=== PATIENT | female | born 1950 | race Caucasian/White ===

== ENCOUNTER → 2017-01-30 | Outpatient (CLI) | payer MEDICARE, OTHER ==
[~2017-01-30] MED LIST: ATENOLOL25 MG PO; BENICAR 20MG TA20 MG PO; GLUCOSAMINE & C1 CA1; NAPROSYN375 MG PO; NAPROXEN 3375 MG/TAB PO; NEXIUM20 MG PO; PERCOCET 325 MG1 TA2 PO; TENORMIN 5050 MG/TAB PO; VESICARE PO; WELLBUTRIN XL300 M1 PO; XANAX .25M0.25 MG/TA PO; ZOFRAN ODT4 MG PO
== END ==
LOC: MC.RAD 10:28
DX: Z12.31 Encounter for screening mammogram for malignant neoplasm of breast (principal); Z98.890 Other specified postprocedural states

== ENCOUNTER 2017-05-26 17:26 | Emergency (ER) | payer MEDICARE, OTHER ==
[~2017-05-26] VITALS: Ht 160 cm; Wt 90.9 kg
[2017-05-26 17:29] VITALS: TEMP 98.1
[2017-05-26 18:42] LABS: BASO # 0.1 (0.0-0.2); BASO % 0.5 % (0.0-2.0); EOS # 0.2 (0.0-0.7); EOS % 1.6 % (0-4.0); GRAN # 6.6 (1.4-6.5); GRAN % 70.6 % (42.2-75.2); HEMATOCRIT 40.7 % (37.0-47.0); HEMOGLOBIN 13.3 g/dl (12.5-16.0); LYMPH # 2.1 (1.2-3.4); LYMPH % 21.9 % (20.0-51.0); MEAN CELL VOLUME 90 fl (80.0-100.0); MEAN CORPUSCULAR HEMOGLOBIN 29 pg (27.0-31.0); MEAN CORPUSCULAR HGB CONC 33 g/dl (33.0-37.0); MEAN PLATELET VOLUME 10.5 fl (7.4-10.4); MONO # 0.5 (0.1-0.6); MONO % 5.1 % (1.7-9.3); PLATELET COUNT 237 K/mm3 (130-400); RED BLOOD COUNT 4.53 M/mm3 (4.10-5.30); REDCELL DISTRIBUTION WIDTH-CV 13.5 % (11.5-14.5)
[2017-05-26 18:52] LABS: ALBUMIN 4.3 gm/dL (3.5-5.0); BILIRUBIN,TOTAL 0.7 mg/dL (0.0-1.0); CALCIUM 9.8 mg/dL (8.4-10.2); CREATININE, serum 1.58 mg/dL (0.52-1.25); POTASSIUM 4.3 mmol/L (3.4-5.0); TOTAL PROTEIN 7.8 gm/dL (6.4-8.2)
[2017-05-26 19:48] VITALS: BP 151/108; PULSE 65
[2017-05-26] MEDS ORDERED: NORCO 325 MG-51 TAB PO (19:53)
[2017-05-26] MEDS ORDERED: ZOFRAN ODT8 MG PO (20:44)
== END 2017-05-26 20:00 | disposition home or self-care (01) ==
LOC: COL.ER 17:26
PROVIDERS: Emergency Medicine
DX: R10.12 Left upper quadrant pain (principal); I10 Essential (primary) hypertension; E80.20 Unspecified porphyria; Z90.710 Acquired absence of both cervix and uterus
CPT/HCPCS: J2270; J7040

== ENCOUNTER → 2018-03-11 | Outpatient (CLI) | payer MEDICARE, OTHER ==
[~2018-03-11] MED LIST changes: +NORCO 325 MG-51 TAB PO; +ZOFRAN ODT8 MG PO
== END ==
LOC: MC.RAD 10:24
DX: Z12.31 Encounter for screening mammogram for malignant neoplasm of breast (principal)

== ENCOUNTER → 2018-10-21 | Outpatient (CLI) | payer MEDICARE, OTHER | LOC: COL.VAS 13:42 | DX: I34.0 Nonrheumatic mitral (valve) insufficiency (principal) ==

== ENCOUNTER → 2019-04-27 | Outpatient (CLI) | payer MEDICARE, OTHER | LOC: MC.RAD 13:37 | DX: Z12.31 Encounter for screening mammogram for malignant neoplasm of breast (principal) ==

== ENCOUNTER → 2022-05-28 | Outpatient (CLI) | payer MEDICARE, OTHER | LOC: MC.RAD 10:00 | DX: Z12.31 Encounter for screening mammogram for malignant neoplasm of breast (principal); D12.6 Benign neoplasm of colon, unspecified ==